=== PATIENT | female | born 1960 | race Caucasian/White ===

== ENCOUNTER 2020-10-14 12:07 | Emergency (ER) | payer OTHER ==
[2020-10-14 17:22] LABS: Absolute Lymphocytes (CBC) 1.7 K/uL (0.7-4.9); Basophils % 1.2 % (0-1.3); Hematocrit 42.8 % (36.0-45.0); Lymphocytes % 29.9 % (15.3-44.8); MPV 9.6 fL (7.6-11.3); RBC Red Blood Cell Count 4.79 M/uL (3.86-4.86)
--- NOTE | 2020-10-14 17:49 | RAD REPORT ---
EXAM DESCRIPTION: CT - Abdomen Pelvis Wo Contrast - 10/14/2020 5:33 pm CLINICAL HISTORY: Abdominal pain. ABD PAIN COMPARISON: No comparisons TECHNIQUE: CT imaging of the abdomen and pelvis was performed without contrast. Solid organ, bowel a nd vascular assessment is limited due to lack of IV and oral contrast. All CT scans are performed using dose optimization technique as appropriate and may include automated exposure control or mA/KV adjustment according to patient size. FINDINGS: The lower lung ramires are clear.Small hiatal hernia is present. The liver, spleen, pancreas, adrenal glands and right kidney are within normal limits for a limited n on-contrast examination. No bowel obstruction, free air, free fluid or abscess. Mild sigmoid diverticulosis without diverticul itis. The appendix is normal. Moderate lower lumbar degenerative changes.6 mm degenerative anterolisthesis of L4 on 5. 3 mm degener ative retrolisthesis of L5 on S1. IMPRESSION: No acute intra-abdominal or pelvic findings. Mild sigmoid diverticulosis coli without diverticulitis. A limited non-contrast examination was performed as detailed.
[2020-10-14] MEDS ORDERED: ONDANSETRON 4 MG/2 ML VIAL ONE (18:12)
[2020-10-14] MEDS ORDERED: NA CHLORIDE 0.9% 1,000 ML ONE (18:12)
[2020-10-14 18:20] LABS: Albumin 4.3 g/dL (3.4-5.0); Bilirubin Direct 0.1 mg/dL (0-0.2); Bilirubin Total 0.7 mg/dL (0.2-1.0); Potassium 3.4 mmol/L (3.5-5.1)
--- NOTE | 2020-10-14 18:57 | ER ---
Nurse's Notes [facility] Name: Princess Machado Age: 60 yrs Sex: Female : 1960 Arrival Date: 10/14/2020 Time: 12:16 Bed 19 Private MD: Diagnosis: Upper abdominal pain, unspecified;Nausea and vomiting;Diarrhea, unspecified Presentation: 10/14 12:37 Chief complaint: Patient states: N/V/D since Tuesday night. + low grade fever, chills. ll1 Coronavirus screen: Client denies travel out of the [place] in the last 14 days. chills, cough unrelated to allergies, diarrhea, difficulty breathing, fatigue, fever, headache, muscle pain, nausea, runny nose, shaking with chills, shortness of breath, vomiting. Client presents with at least one sign or symptom that may indicate coronavirus-19. Standard/surgical mask placed on the client. Ebola Screen: Patient denies travel to an Ebola-affected area in the 21 days before illness onset. Initial Sepsis Screen: Does the patient meet any 2 criteria? No. Patient's initial sepsis screen is negative. Does the patient have a suspected source of infection? Yes: Skin breakdown/wound. Risk Assessment: Do you want to hurt yourself or someone else? Patient reports no desire to harm self or others. Onset of symptoms was October 10, 2020. 12:37 Method Of Arrival: Ambulatory ll1 12:37 Acuity: JESUS 3 ll1 Historical: - Allergies: 12:42 PENICILLINS; ll1 12:42 Clindamycin; ll1 - PMHx: 12:42 diverticulitis pockets; Hypertension; Fibromyalgia; Depression; spinal menigitis; ll1 - PSHx: 12:42 1 kidney; Bilat. knee replacements, carpal tunnel release B; ll1 - Immunization history:: Flu vaccine is not up to date. - Social history:: Smoking status: Patient denies any tobacco usage or history of. Screenin:11 Abuse screen: Denies threats or abuse. Nutritional screening: No deficits noted. bw Tuberculosis screening: No symptoms or risk factors identified. Fall Risk None identified. Assessment: 17:11 Pain:. Pain: Denies pain. Neuro: No deficits noted. Cardiovascular: No deficits noted. bw Respiratory: No deficits noted. GI: Reports nausea, vomiting. : No deficits noted. No signs and/or symptoms were reported regarding the genitourinary system. EENT: No deficits noted. No signs and/or symptoms were reported regarding the EENT system. Derm: No deficits noted. No signs and/or symptoms reported regarding the dermatologic system. Musculoskeletal: No deficits noted. No signs and/or symptoms reported regarding the musculoskeletal system. 17:21 Pain: Complains of pain in abdomen. bw 18:58 Reassessment: Patient appears in no apparent distress at this time. Patient and/or bw family updated on plan of care and expected duration. Pain level reassessed. Patient is alert, oriented x 3, equal unlabored respirations, skin warm/dry/pink. DC pending IV fluids finishing . Vital Signs: 12:37 BP 137 / 80; Pulse 78; Resp 17; Temp 98.8; Pulse Ox 100% ; Weight 122.47 kg; Height 5 ll1 ft. 1 in. (154.94 cm); Pain 8/10; 17:11 BP 156 / 98; Pulse 62; Resp 18; Pulse Ox 100% on R/A; bw 18:58 BP 152 / 94; Pulse 64; Resp 18; Pulse Ox 100% ; bw 12:37 Body Mass Index 51.02 (122.47 kg, 154.94 cm) ll1 ED Course: 12:16 Patient arrived in ED. ds1 12:40 Triage completed. ll1 12:43 Arm band placed on Patient notified of wait time. ll1 16:42 Winifred Grande RN is Primary Nurse. bw 16:44 [facility] Perez [facility]C [facility]. kb 16:44 Yossi Garcia MD is Attending Physician. kb 17:11 Patient has correct armband on for positive identification. Bed in low position. Call bw light in reach. Side rails up X 1. Pulse ox on. NIBP on. Warm blanket given. 17:11 No provider procedures requiring assistance completed. Inserted saline lock: 20 gauge bw in left antecubital area, using aseptic technique. 17:33 CT Abd/Pelvis - Without Contrast In Process Unspecified. EDMS 19:16 Primary Nurse role handed off by Winifred Grande RN mw2 19:43 IV discontinued, intact, bleeding controlled, No redness/swelling at site. Pressure sf dressing applied. Administered Medications: 18:19 Drug: NS 0.9% 1000 ml Route: IV; Rate: 1000 ml; Site: left antecubital; bw 19:37 Follow up: IV Status: Completed infusion; IV Intake: 1000ml sf 19:37 Follow up: Response: No adverse reaction sf 18:19 Drug: Zofran (Ondansetron) 4 mg Route: IVP; Site: right antecubital; bw 18:19 Follow up: Response: No adverse reaction bw Intake: 19:37 IV: 1000ml; Total: 1000ml. sf Outcome: 18:56 Discharge ordered by . kb 19:43 Discharged to home ambulatory. sf 19:43 Condition: stable 19:43 Discharge instructions given to patient, Instructed on discharge instructions, follow up and referral plans. medication usage, Demonstrated understanding of instructions, follow-up care, medications, Prescriptions given X 1. 19:43 Patient left the ED. sf Signatures: Dispatcher [employer] EDMS Rossana Perez, JANICE-C TUBER MACHINE OPERATOR-Samira Benjamin ds1 Verena Green mw2 Aden Barrera, RN RN 1 Contreras Mena RN RN sf Winifred Grande RN RN
--- NOTE | 2020-10-14 18:57 | EDPHYS ---
Physician Documentation [facility] Name: Princess Machado Age: 60 yrs Sex: Female : 1960 Arrival Date: 10/14/2020 Time: 12:16 Bed 19 Private MD: ED Physician Yossi Garcia HPI: 10/14 18:54 This 60 yrs old Female presents to ER via Ambulatory with complaints of kb Diarrhea. 18:54 The patient presents to the emergency department with nausea, vomiting, diarrhea, kb abdominal pain. Onset: The symptoms/episode began/occurred 3 day(s) ago. Possible causes: unknown. The symptoms are aggravated by nothing. The symptoms are alleviated by nothing. Associated signs and symptoms: Pertinent positives: abdominal pain, diarrhea, nausea, vomiting. Severity of symptoms: At their worst the symptoms were moderate in the emergency department the symptoms are unchanged. The patient has experienced similar episodes in the past, chronically. The patient has not recently seen a physician. Pt reports n/v/d and upper abd pain since Tuesday. States she has been getting these symptoms on and off for about a year. Has seen GI, had multiple tests done and is being treated for IBS. . Historical: - Allergies: 12:42 PENICILLINS; ll1 12:42 Clindamycin; ll1 - PMHx: 12:42 diverticulitis pockets; Hypertension; Fibromyalgia; Depression; spinal menigitis; ll1 - PSHx: 12:42 1 kidney; Bilat. knee replacements, carpal tunnel release B; ll1 - Immunization history:: Flu vaccine is not up to date. - Social history:: Smoking status: Patient denies any tobacco usage or history of. ROS: 18:53 Constitutional: Negative for fever, chills, and weight loss, Cardiovascular: Negative kb for chest pain, palpitations, and edema, Respiratory: Negative for shortness of breath, cough, wheezing, and pleuritic chest pain, : Negative for injury, bleeding, discharge, and swelling, MS/Extremity: Negative for injury and deformity, Skin: Negative for injury, rash, and discoloration, Neuro: Negative for headache, weakness, numbness, tingling, and seizure. 18:53 Abdomen/GI: Positive for abdominal pain, nausea, vomiting, and diarrhea. Exam: 18:53 Constitutional: This is a well developed, well nourished patient who is awake, alert, kb and in no acute distress. Head/Face: Normocephalic, atraumatic. Cardiovascular: Regular rate and rhythm with a normal S1 and S2. No gallops, murmurs, or rubs. No pulse deficits. Respiratory: Respirations even and unlabored. No increased work of breathing, no retractions or nasal flaring. Back: No spinal tenderness. No costovertebral tenderness. Full range of motion. Skin: Warm, dry with normal turgor. Normal color. MS/ Extremity: Pulses equal, no cyanosis. Neurovascular intact. Full, normal range of motion. Neuro: Awake and alert, GCS 15, oriented to person, place, time, and situation. Moves all extremities. Normal gait. 18:53 Abdomen/GI: Inspection: abdomen appears normal, Bowel sounds: normal, in all quadrants, Palpation: soft, in all quadrants, mild abdominal tenderness, in the right upper quadrant and left upper quadrant. Vital Signs: 12:37 BP 137 / 80; Pulse 78; Resp 17; Temp 98.8; Pulse Ox 100% ; Weight 122.47 kg; Height 5 ll1 ft. 1 in. (154.94 cm); Pain 8/10; 17:11 BP 156 / 98; Pulse 62; Resp 18; Pulse Ox 100% on R/A; bw 18:58 BP 152 / 94; Pulse 64; Resp 18; Pulse Ox 100% ; bw 12:37 Body Mass Index 51.02 (122.47 kg, 154.94 cm) ll1 MDM: 16:44 Patient medically screened. kb 18:53 Data reviewed: vital signs, nurses notes. Data interpreted: Pulse oximetry: on room air kb is 100 %. Interpretation: normal. Counseling: I had a detailed discussion with the patient and/or guardian regarding: the historical points, exam findings, and any diagnostic results supporting the discharge/admit diagnosis, lab results, radiology results, the need for outpatient follow up, a family practitioner, a cosmetic sales assistant, to return to the emergency department if symptoms worsen or persist or if there are any questions or concerns that arise at home. 10/14 16:45 Order name: Basic Metabolic Panel; Complete Time: 18:29 kb 10/14 16:45 Order name: CBC with Diff; Complete Time: 17:25 kb 10/14 16:45 Order name: Hepatic Function; Complete Time: 18:29 kb 10/14 16:45 Order name: Lipase; Complete Time: 18:29 kb 10/14 17:06 Order name: CT Abd/Pelvis - Without Contrast; Complete Time: 17:52 kb 10/14 16:45 Order name: IV Saline Lock; Complete Time: 17:19 kb 10/14 16:45 Order name: Labs collected and sent; Complete Time: 17:19 kb Administered Medications: 18:19 Drug: NS 0.9% 1000 ml Route: IV; Rate: 1000 ml; Site: left antecubital; bw 19:37 Follow up: IV Status: Completed infusion; IV Intake: 1000ml sf 19:37 Follow up: Response: No adverse reaction sf 18:19 Drug: Zofran (Ondansetron) 4 mg Route: IVP; Site: right antecubital; bw 18:19 Follow up: Response: No adverse reaction bw Disposition: 10/15 07:01 Co-signature as Attending Physician, Yossi Garcia MD. rn Disposition: 10/14/20 18:56 Discharged to Home. Impression: Upper abdominal pain, unspecified, Nausea and vomiting, Diarrhea, unspecified. - Condition is Stable. - Discharge Instructions: Food Choices to Help Relieve Diarrhea, Adult, Viral Gastroenteritis, Adult, [id number], Nausea and Vomiting, Adult, [id number], Abdominal Pain, Adult, [id number]. - Prescriptions for Zofran ODT 4 mg Oral tablet,disintegrating - place 1 tablet by TRANSLINGUAL route every 6 hours As needed; 20 tablet. - Medication Reconciliation Form, Thank You Letter, Antibiotic Education, Prescription Opioid Use form. - Follow up: Emergency Department; When: As needed; Reason: Worsening of condition. Follow up: Private Physician; When: 2 - 3 days; Reason: Recheck today's complaints, Continuance of care, Re-evaluation by your physician. Signatures: Dispatcher [employer] Rossana Noe, DRENCHER-C DRENCHER-Yossi Trevino MD MD rn Lewis, Lynsay, RN RN ll1 Contreras Mena RN RN [facility] RN RN Corrections: (The following items were deleted from the chart) 10/14 18:54 18:53 Abdomen/GI: Positive for nausea, vomiting, and diarrhea, kb kb 19:43 18:56 10/14/2020 18:56 Discharged to Home. Impression: Upper abdominal pain, sf unspecified; Nausea and vomiting; Diarrhea, unspecified. Condition is Stable. Forms are Medication Reconciliation Form, Thank You Letter, Antibiotic Education, Prescription Opioid Use. Follow up: Emergency Department; When: As needed; Reason: Worsening of condition. Follow up: Private Physician; When: 2 - 3 days; Reason: Recheck today's complaints, Continuance of care, Re-evaluation by your physician. kb
[2020-10-14 20:06] VITALS: TEMP 98.8; O2SAT 100
[2020-10-14 20:08] VITALS: BP 152/94
== END 2020-10-14 19:43 | disposition home or self-care (01) ==
LOC: ER 12:07
DX: R19.7 Diarrhea, unspecified (principal); R11.2 Nausea with vomiting, unspecified; I10 Essential (primary) hypertension; Z88.0 Allergy status to penicillin; Z88.3 Allergy status to other anti-infective agents
CPT/HCPCS: 85025; 80048; 36415; 80076; 83690; 74176; J7030; J2405; 96361; 96374; 99284